=== PATIENT | male | born 1975 | race Caucasian/White ===

== ENCOUNTER 2024-02-25 06:33 | Emergency (ER) | payer OTHER, SELFPAY ==
[2024-02-25 06:41] VITALS: BP 162/98; PULSE 100; TEMP 36.6; O2SAT 97; BMI 32.3
[2024-02-25 07:20] LABS: Influenza Virus A Antigen Negative; Influenza Virus B Antigen Negative; Internal Control Within Normal Limits; SARS-CoV-2 Ag POSITIVE (NEGATIVE)
--- NOTE | 2024-02-25 07:27 | ED.URI1 ---
HPI - URI/Sore Throat General Chief Complaint: Upper Respiratory Infection Stated Complaint: NASAL PAIN/CONGESTION Time Seen by Provider: 02/25/24 07:17 Source: patient Limitations: no limitations History of Present Illness HPI Narrative: 49-year-old male presents to the emergency department for cough and congestion. He has had this for 3 to 4 days. No vomiting or diarrhea. He has had some pressure in his head. Symptoms are continuous. Related Data Home Medications ?Medication ?Instructions ?Recorded ?Confirmed No Known Home Medications 02/25/24 02/25/24 Allergies Allergy/AdvReac Type Severity Reaction Status Date / Time No Known Drug Allergies Allergy Verified 02/25/24 06:47 Review of Systems ROS Narrative A ten point review of systems is negative except as noted above. PFSH PFSH Social History Little interest or pleasure in doing things: not at all Feeling down, depressed, or hopeless: not at all Exam Narrative Exam Narrative: Nurses note and vital signs reviewed and patient is not hypoxic. General: The patient appears well and in no apparent distress. Patient is resting comfortably on cart. Skin: Warm, dry, no pallor noted. There is no rash noted. Head: Normocephalic, atraumatic Eye: Normal conjunctiva, no drainage Ears, Nose, Mouth, and Throat: oral mucosa is moist. Nares patent. Cardiovascular: Regular Rate and Rhythm Respiratory: Patient is in no distress, no accessory muscle use, lungs are clear to auscultation, no wheezing, rales or rhonchi Back: non-tender GI: Soft and nontender Musculoskeletal: No joint swelling Neurological: A&O, normal speech Psychiatric: Cooperative Constitutional Vital Signs, click to edit/add: Last Vital Signs Temp 97.8 F 02/25/24 06:41 Pulse 100 H 02/25/24 06:41 Resp 18 02/25/24 06:41 BP 162/98 H 02/25/24 06:41 Pulse Ox 97 02/25/24 06:41 O2 Del Method Room Air 02/25/24 06:41 Course Vital Signs Vital signs: Vital Signs Temperature 97.8 F 02/25/24 06:41 Pulse Rate 100 H 02/25/24 06:41 Respiratory Rate 18 02/25/24 06:41 Blood Pressure 162/98 H 02/25/24 06:41 Pulse Oximetry 97 02/25/24 06:41 Oxygen Delivery Method Room Air 02/25/24 06:41 Temperature 97.8 F 02/25/24 06:41 Pulse Rate 100 H 02/25/24 06:41 Respiratory Rate 18 02/25/24 06:41 Blood Pressure 162/98 H 02/25/24 06:41 Pulse Oximetry 97 02/25/24 06:41 Oxygen Delivery Method Room Air 02/25/24 06:41 MDM - URI/Sore Throat MDM Narrative Medical decision making narrative: The patient tested positive for COVID and he was informed. Influenza testing is negative. Treatment diagnosis and follow-up were discussed with the patient. Differential Diagnosis Differential diagnosis: Likely upper respiratory infection, viral infection, influenza and other (COVID) Lab Data Attestation: I reviewed the patient's lab results. Labs: Lab Results 02/25/24 Range/Units 06:50 Influenza Type A Ag Negative Influenza Type B Ag Negative SARS-CoV-2 Ag (CV2AG) Positive A (NEGATIVE) Discharge Plan Discharge Chief Complaint: Upper Respiratory Infection Clinical Impression: COVID-19 Patient Disposition: Home, Self-Care Time of Disposition Decision: 07:27 Condition: Good Mode of Transportation: Private Vehicle Prescriptions / Home Meds: No Action No Known Home Medications Print Language: Korean Instructions: COVID-19 (Coronavirus Disease 2019) (ED), COVID-19: Slow the Coronavirus Spread (ED), Face Coverings (Masks) and COVID-19 (ED) Referrals: Physician,Non-Staff, MD [Primary Care Provider] - 1 week
== END 2024-02-25 08:00 | disposition home or self-care (01) ==
PROVIDERS: Student in an Organized Health Care Education/Training Program; Emergency Provider Emergency Medicine
DX: U07.1 COVID-19 (principal)
CPT/HCPCS: 87804; 87811; 99283

== ENCOUNTER 2024-03-26 07:19 | Outpatient (OUT) | payer OTHER, SELFPAY ==
--- OUTSIDE RECORDS SUMMARY | 2024-03-26 07:22 | XMS_ITS | CCD ---
Author Organization [facility] Care Team Providers Care Tube Fitter Name Role Phone ZEN ANDERSON Primary Care Unavailable AIRAM EUCEDA Admitting Unavailable AIRAM EUCEDA Attending Unavailable AIRAM EUCEDA Consulting Unavailable ZEN ANDERSON Primary Care Unavailable KAYE WASHINGTON Admitting Unavailable HAYKAYE Attending Unavailable KAYE WASHINGTON Consulting Unavailable ZEN ANDERSON Primary Care Unavailable WILLOWS, OF TONY Admitting Unavailable WILLOWS, OF ENSIGN Attending Unavailable RODOLFO SANTANA Consulting Unavailable EMILY MENDES Consulting Unavailable David Sierra Attending Unavailable David Sierra Attending Unavailable David Sierra Attending Unavailable David Sierra Attending Unavailable Bárbara Vieira Attending Unavailable David Sierra Attending Unavailable David Sierra Attending Unavailable David Sierra Attending Unavailable Allergies Allergy Classification Reported Allergen(s) Allergy Type Date of Onset Reaction(s) Facility (1 source) No Known Medication Allergies; Translations: [No Known Medication Allergies] Propensity to adverse reactions (disorder) [facility] Repository Problems Active Problems Problem Classification Problem Date Documented Date Episodic/Chronic Disorders of teeth and jaw (3 sources) Jaw pain; Translations: [JAW PAIN] Onset: 08-26-2018 Episodic Disorders of teeth and jaw (1 source) Arthralgia of right temporomandibular joint; Translations: [ARTHRALGIA OF RIGHT TMD JOINT] Onset: 08-31-2018 Essential hypertension (1 source) Essential (primary) hypertension; Translations: [ESSENTIAL PRIMARY HYPERTENSION] Onset: 06-03-2018 Chronic External cause codes: Natural/environment (1 source) Other and unspecified overexertion or strenuous movements or postures, initial encounter; Translations: [OTH AND UNS OVREXRT/STRN MVMT/POS INT] Onset: 12-28-2017 Headache; including migraine (1 source) Tension-type headache, unspecified, not intractable; Translations: [TENSION-TYP HEADACHE UNS NOT INTRCT] Onset: 06-03-2018 Chronic Substance-related disorders (1 source) Nicotine dependence, cigarettes, uncomplicated; Translations: [NICOTINE DEPEND CIGARETTES UNCOMP] Onset: 08-31-2018 Chronic Past or Other Problems Problem Classification Problem Date Documented Da te Episodic/Chronic Headache; including migraine (3 sources) Headache; Translations: [HEADACHE] Onset: 06-01-2018 Episodic Malaise and fatigue (1 source) Weakness; Translations: [WEAKNESS] Onset: 12-28-2017 Episodic Other nervous system disorders (1 source) Anesthesia of skin; Translations: [ANESTHESIA OF SKIN] Onset: 12-28-2017 Episodic Spondylosis; intervertebral disc disorders; other back problems (3 sources) Dorsalgia, unspecified; Translations: [DORSALGIA UNSPECIFIED] Onset: 12-24-2017 Episodic Sprains and strains (1 source) Sprain of other specified parts of left shoulder girdle, initial encounter; Translations: [SPRAIN OTH PART LT SHLDR GIRDL INIT] Onset: 12-28-2017 Episodic Results Test Name Value Interpretation Reference Range [facility] Family Medicine Office/Clini c Noteon 01-04-2024 Family Medicine Office/Clinic Note Family Medicine Office/Clinic Note Chief Complaint Nerve Pain HPI Staff Elizabeth is a 48 year old male presenting with burning in nerves in legs and feet Onset: Has been going on for a while. Last fall. Has tried putting oil on them. History of Present Illness Patient presents with concerns about bilateral leg pain. Patient states is a 5 out of 10 at this time. Patient states that worsens as he walks throughout the day. It is not 1 of those pains where he can stop take a break and the pain goes away. Patient states that starts in his feet and goes all the way up to his calves. Patient states is not a crampy pain. Patient is try to stretch it out without any help. Patient tried medication topically however nothing is work. Patient does consume 5-6 alcoholic drinks on the weekends and 1-2 every day. Patient also uses marijuana. Review of Systems PHQ Score Initial Depression Screen Score: 0 SCORE Physical Exam Vitals & Measurements T: 36.4 ???C(Tympanic) HR: 86(Peripheral) RR: 18 BP: 150/88 SpO2: 96% HT: 69 in HT: 174 cm WT: 102.7 kg WT: 226.414 lb BMI: 33.92 General: alert, no acute distress ENMT: oral mucosa moist, Cardiovascular: regular rate and rhythm, normal peripheral perfusion Respiratory: Lungs CTA, respirations non labored Extremities: no deformity, no trauma, lower extremities are within normal limits. No signs of skin abnormalities. Full range of motion. Neurological: oriented x 4, LOC appropriate for age, CN II-XII intact, motor strength equal & normal bilaterally, speech normal Abdomen: Soft, Nontender, Non-distended, + BS Assessment/Plan 1. Primary hypertension (I10: Essential (primary) hypertension) Blood pressure is controlled however patient is no longer taking his blood pressure medication. Will continue to monitor. Ordered: EMG Bilateral Lower Extremity (BLE) 2. Leg pain (M79.606: Pain in leg, unspecified) With the burning and tingling of his feet we will do EMGs. After that we will test for other possible options. Encourage alcohol sensation given the amount he consumes. Ordered: EMG Bilateral Lower Extremity (BLE) 4. BMI 33.0-33.9,adult (Z68.33: Body mass index [BMI] 33.0-33.9, adult) BMI education added Ordered: EMG Bilateral Lower Extremity (BLE) 5. Smoker (F17.200: Nicotine dependence, unspecified, uncomplicated) Please stop smoking Ordered: EMG Bilateral Lower Extremity (BLE) 6. Obesity (BMI 30-39.9) (E66.9: Obesity, unspecified) Diet and exercise advised Ordered: EMG Bilateral Lower Extremity (BLE) Follow-up No qualifying data available Patient Education BMI for Adults Problem List/Past Medical History Ongoing Allergic rhinitis Leg pain Obesity (BMI 30-39.9) Primary hypertension Historical No qualifying data Procedure/Surgical History History of repair of inguinal hernia. Medications hydrochlorothiazide-losa rtan 25 mg-100 mg Tab, See Instructions, Not taking traZODONE 50 mg Tab, See Instructions, Not taking Allergies No Known Allergies Social History Alcohol Current. Beer. 1-2 times per week., 01/04/2024 Tobacco 4 or less cigarettes(less than 1/4 pack)/day in last 30 days Tobacco Use:. Never Smokeless Tobacco Use:. Cigarettes, Household tobacco concerns: No. Yes, 01/04/2024 Family History Acute myocardial infarction: Mother. Immunizations Vaccine Date Status SARS-CoV-2 (COVID-19) mRNA BNT-162b2 vax 06/14/2020 Recorded SARS-CoV-2 (COVID-19) mRNA BNT-162b2 vax 05/24/2020 Recorded Normal [facility] Comment on above: Result Comment: Elec tronically Signed By: Rigo WILSON, David Blood.br\Date and Time Signed: 01/04/24 17:04 EST Family Medicine Office/Clini c Noteon 12-07-2023 Family Medicine Office/Clinic Note Family Medicine Office/Clinic Note HPI Staff Elizabeth is a 48 year old male presenting for 2 week follow up htn DEANA eliminate nyquil ( affecting losartan hctz regimen) add trazodone for sleep Patient is here for follow up on hypertension. How often are you checking your blood pressure? Doesnt check BP at home What are your average readings? N/A, Not checking at home Yearly BMP: ?? questions/concerns: took the trazodone consistently for a couple days then he just couldn't seem to wake up. He did stop the nyquil. Still has the trazodone but not taking every night History of Present Illness - See staff HPI. Physical Exam Vitals & Measurements T: 36.2 ?C(Oral) HR: 76(Peripheral) RR: 18 BP: 132/84 SpO2: 98% HT: 69 in HT: 174.6 cm WT: 105.5 kg WT: 232.1 lb BMI: 34.61 Assessment/Plan 1. Primary hypertension (I10: Essential (primary) hypertension) Controlled now that he is not on nightquil. Continue as before 2. BMI 34.0-34.9,adult (Z68.34: Body mass index [BMI] 34.0-34.9, adult) BMI education added 3. Exogenous obesity (E66.09: Other obesity due to excess calories) Diet and exercise advised 4. Smoker (F17.200: Nicotine dependence, unspecified, uncomplicated) Please stop smoking. If you need help let us know. 5. Insomnia (G47.00: Insomnia, unspecified) Pt is going to try off meds. Will monitor. Follow-up No qualifying data available Problem List/Past Medical History Ongoing Acute URI Allergic rhinitis Primary hypertension Historical No qualifying data Procedure/Surgical History History of repair of inguinal hernia. Medications hydrochlorothiazide-losa rtan 25 mg-100 mg Tab, See Instructions Allergies No Known Allergies Social History Tobacco 4 or less cigarettes(less than 1/4 pack)/day in last 30 days Tobacco Use:. Never Smokeless Tobacco Use:. Cigarettes, Household tobacco concerns: No., 12/07/2023 Family History Acute myocardial infarction: Mother. Immunizations Vaccine Date Status SARS-CoV-2 (COVID-19) mRNA BNT-162b2 vax 06/14/2020 Recorded SARS-CoV-2 (COVID-19) mRNA BNT-162b2 vax 05/24/2020 Recorded Normal [facility] Comment on above: Result Comment: Elec tronically Signed By: David Sierra MD\.br\Date and Time Signed: 12/07/23 16:47 EDT Ambulatory Visit Summaryon 0 11-23-2023 Ambulatory Visit Summary Ambulatory Visit Summary ELIZABETH CALLAHAN :1975 Visit Date:11/23/2023 Ambulatory Visit Instructions Your Diagnosis BMI 33.0-33.9,adult Class 1 obesity due to excess calories in adult Smoker Alcohol abuse, uncomplicated Essential (primary) hypertension Your Care Team Attending Physician - David Sierra MD Primary Care Physician - David Sierra MD This Is Your Medications List Contact prescribing physician if questions or concerns hydrochlorothiazide-losa rtan (hydrochlorothiazide-los karie 25 mg-100 mg Tab) Procedures Performed History of repair of inguinal hernia. Discharge Vitals Temperature (Oral) 36.7 ?C Heart Rate (Peripheral) 74 Respiratory Rate 16 Blood Pressure 146/92 Height 174.6 cm Height 69 in Weight 102.6 kg Weight 225.72 lb BMI 33.66 What to do next Scheduled Follow-Up Appointments Thursday 4:30 PM EDT With: David Sierra MD Where: [address] [address]- Thursday 4:00 PM EDT With: David Sierra MD Where: [facility] [id number]- Medications What How Much When Instructions Unchanged hydrochlorothiazide-losa rtan (hydrochlorothiazide-los akrie 25 mg-100 mg Tab) See instructions TAKE 1 TABLET BY MOUTH EVERY DAY Contact prescribing physician if questions or concerns Allergies No Known Allergies Problems Ongoing - Any problem that you are currently receiving treatment for. Acute URI Allergic rhinitis Primary hypertension Patient Survey You may receive a survey via text or e-mail asking about your office visit. Please share your experience with us by completing your survey. We appreciate your feedback and thank you for choosing us for your care. Normal [facility] Ambulatory Visit Summaryon 0 11-02-2023 Ambulatory Visit Summary Ambulatory Visit Summary ELIZABETH CALLAHAN :1975 Visit Date:11/02/2023 Ambulatory Visit Instructions Your Diagnosis Acute URI Primary hypertension Allergic rhinitis BMI 34.0-34.9,adult Class 1 obesity due to excess calories in adult Smoker Your Care Team Attending Physician - David Sierra MD Primary Care Physician - David Sierra MD. This Is Your Medications List Contact prescribing physician if questions or concerns hydrochlorothiazide-losa rtan (hydrochlorothiazide-los karie 25 mg-100 mg Tab) Procedures Performed History of repair of inguinal hernia. Discharge Vitals Temperature (Oral) 36.8 ?C Heart Rate (Peripheral) 102 Respiratory Rate 18 Blood Pressure 150/84 Height 174.6 cm Height 69 in Weight 104.5 kg Weight 229.9 lb BMI 34.28 What to do next Scheduled Follow-Up Appointments Thursday 4:00 PM EDT With: David Sierra MD Where: [address] [address]- Medications What How Much When Instructions Unchanged hydrochlorothiazide-losa rtan (hydrochlorothiazide-los karie 25 mg-100 mg Tab) See instructions TAKE 1 TABLET BY MOUTH EVERY DAY Contact prescribing physician if questions or concerns Allergies No Known Allergies Problems Ongoing - Any problem that you are currently receiving treatment for. Acute URI Allergic rhinitis Primary hypertension Patient Survey You may receive a survey via text or e-mail asking about your office visit. Please share your experience with us by completing your survey. We appreciate your feedback and thank you for choosing us for your care. [facility] Medicine Office/Clini c Noteon 11-02-2023 Family Medicine Office/Clinic Note Family Medicine Office/Clinic Note HPI Staff Elizabeth is a 48 year old male presenting for sick visit Acute: cough, congestion _Respiratory C/O: Duration: month or more Body aches: no Chest congestion: no Chills: yes Cough: no gone last day or 2 had one last week Ear complaints: no Eye itching/watering: no Fever: no Headache: yes sinus Nasal congestion: yes Nasal discharge: yes Poor appetite: no Reduced activity: no Sinus pain/pressure: yes Sneezing: yes Sputum production: no Wheezing: no Ill contacts: yesbrother bad cold Remedies tried: vitamin c drops and nyquil _ _ History of Present Illness - See staff HPI. Review of Systems PHQ Score Initial Depression Screen Score: 0 SCORE Physical Exam Vitals & Measurements T: 36.8 ?C(Oral) HR: 102(Peripheral) RR: 18 BP: 150/84 SpO2: 98% HT: 69 in HT: 174.6 cm WT: 104.5 kg WT: 229.9 lb BMI: 34.28 General: alert, no acute distress ENMT: oral mucosa moist, TMS are WNL Cardiovascular: regular rate and rhythm, normal peripheral perfusion Respiratory: Lungs CTA, respirations non labored Extremities: no deformity, no trauma Neurological: oriented x 4, LOC appropriate for age, CN II-XII intact, motor strength equal & normal bilaterally, speech normal Abdomen: Soft, Nontender, Non-distended, + BS Assessment/Plan 1. Acute URI (J06.9: Acute upper respiratory infection, unspecified) - Covid is negative. - Unsure if allergies. Ordered: azithromycin, 500 mg = 1 tab(s), Oral, Daily, # 3 tab(s), Refills(s) 0, Pharmacy: [id number], 174.6, cm, 11/02/23 9:56:00 EDT, Height/Length Dosing, 104.5, kg, 11/02/23 9:56:00 EDT, Weight Dosing methylPREDNISolone, = 1 packet(s), Oral, As Directed, as directed on package labeling, X 6 day(s), # 21 tab(s), Refills(s) 0, [id number] 174.6, cm, 11/02/23 9:56:00 EDT, Height/Length Dosing, 104.5, kg, 11/02/23 9:56:00 EDT, Weight Dosing Rapid COVID POC 09033 2. Primary hypertension (I10: Essential (primary) hypertension) - At goal. Will refill meds Ordered: azithromycin, 500 mg = 1 tab(s), Oral, Daily, # 3 tab(s), Refills(s) 0, [id number], 174.6, cm, 11/02/23 9:56:00 EDT, Height/Length Dosing, 104.5, kg, 11/02/23 9:56:00 EDT, Weight Dosing methylPREDNISolone, = 1 packet(s), Oral, As Directed, as directed on package labeling, X 6 day(s), # 21 tab(s), Refills(s) 0, [id number], 174.6, cm, 11/02/23 9:56:00 EDT, Height/Length Dosing, 104.5, kg, 11/02/23 9:56:00 EDT, Weight Dosing Rapid COVID POC 65427 3. Allergic rhinitis (J30.9: Allergic rhinitis, unspecified) - Possibly the cause of the sinus pressure. - Recommend Zyrtec. Ordered: azithromycin, 500 mg = 1 tab(s), Oral, Daily, # 3 tab(s), Refills(s) 0, [id number], 174.6, cm, 11/02/23 9:56:00 EDT, Height/Length Dosing, 104.5, kg, 11/02/23 9:56:00 EDT, Weight Dosing methylPREDNISolone, = 1 packet(s), Oral, As Directed, as directed on package labeling, X 6 day(s), # 21 tab(s), Refills(s) 0, [id number], 174.6, cm, 11/02/23 9:56:00 EDT, Height/Length Dosing, 104.5, kg, 11/02/23 9:56:00 EDT, Weight Dosing Rapid COVID POC 90844 4. BMI 34.0-34.9,adult (Z68.34: Body mass index [BMI] 34.0-34.9, adult) - BMI education added Ordered: azithromycin, 500 mg = 1 tab(s), Oral, Daily, # 3 tab(s), Refills(s) 0, [id number], 174.6, cm, 11/02/23 9:56:00 EDT, Height/Length Dosing, 104.5, kg, 11/02/23 9:56:00 EDT, Weight Dosing methylPREDNISolone, = 1 packet(s), Oral, As Directed, as directed on package labeling, X 6 day(s), # 21 tab(s), Refills(s) 0, [id number], 174.6, cm, 11/02/23 9:56:00 EDT, Height/Length Dosing, 104.5, kg, 11/02/23 9:56:00 EDT, Weight Dosing Rapid COVID POC 86189 5. Class 1 obesity due to excess calories in adult (E66.09: Other obesity due to excess calories) - Diet and exercise advised Ordered: azithromycin, 500 mg = 1 tab(s), Oral, Daily, # 3 tab(s), Refills(s) 0, [id number], 174.6, cm, 11/02/23 9:56:00 EDT, Height/Length Dosing, 104.5, kg, 11/02/23 9:56:00 EDT, Weight Dosing methylPREDNISolone, = 1 packet(s), Oral, As Directed, as directed on package labeling, X 6 day(s), # 21 tab(s), Refills(s) 0, [id number], 174.6, cm, 11/02/23 9:56:00 EDT, Height/Length Dosing, 104.5, kg, 11/02/23 9:56:00 EDT, Weight Dosing Rapid COVID POC 52796 6. Smoker (F17.200: Nicotine dependence, unspecified, uncomplicated) Ordered: azithromycin, 500 mg = 1 tab(s), Oral, Daily, # 3 tab(s), Refills(s) 0, [id number], 174.6, cm, 11/02/23 9:56:00 EDT, Height/Length Dosing, 104.5, kg, 11/02/23 9:56:00 EDT, Weight Dosing methylPREDNISolone, = 1 packet(s), Oral, As Directed, as directed on package labeling, X 6 day(s), # 21 tab(s), Refills(s) 0, Pharmacy: [id number], 174.6, cm, 11/02/23 9:56:00 EDT, Height/Length Dosing, 104.5, kg, 11/02/23 9:56:00 EDT, Weight Dosing Follow-up No qu (more content not included)... [facility] Comment on above: Result Comment: Elec tronically Signed By: David Sierra MD\.br\Date and Time Signed: 11/02/23 10:17 EDT Provider Letteron 11-02-2023 Provider Letter Provider Letter November 02, 2023 ELIZABETH CALLAHAN [address] [place] [address] : 1975 To Whom It May Concern, Please excuse above patient from work. Date of Illness: From: _11-02-23 To: _11-02-23 May Return to Work On:11-03-23 Restrictions: _ Comments: _ Sincerely, Family Medicine [address] [address] [facility] Ambulatory Visit Summaryon 0 05-14-2023 Ambulatory Visit Summary ELIZABETH CALLAHAN :1975 Visit Date:05/14/2023 Ambulatory Visit Instructions Your Diagnosis BMI 34.0-34.9,adult Smoker Your Care Team Attending Physician - Bárbara Cameron Primary Care Physician - David Sierra MD This Is Your Medications List hydrochlorothiazide-losa rtan (hydrochlorothiazide-los karie 25 mg-100 mg Tab) Procedures Performed History of repair of inguinal hernia. Discharge Vitals Temperature (Tympanic) 36.6 ?C Heart Rate (Peripheral) 70 Respiratory Rate 18 Blood Pressure 138/88 Height 174.6 cm Height 69 in Weight 105.6 kg Weight 232.32 lb BMI 34.64 Medications What How Much When Instructions Unchanged hydrochlorothiazide-losa rtan (hydrochlorothiazide-los karie 25 mg-100 mg Tab) See instructions TAKE 1 TABLET BY MOUTH EVERY DAY Allergies No Known Allergies Problems Ongoing - Any problem that you are currently receiving treatment for. Allergic rhinitis Chest pain on breathing Primary hypertension Torticollis Patient Survey You may receive a survey via text or e-mail asking about your office visit. Please share your experience with us by completing your survey. We appreciate your feedback and thank you for choosing us for your care. Normal [facility] Family Medicine Office/Clini c Noteon 05-14-2023 Family Medicine Office/Clinic Note HPI Staff Elizabeth is a 48 year old male presenting for acute sick visit Respiratory C/O: Onset: 2 days ago Body aches: no Chest congestion: yes chest feels heavy Chills: no Cough: no Sputum production: no Sore throat: no Ear complaints: no Eye itching/watering: no Fever: no Headache: no Nasal congestion: yes Nasal discharge: yes Poor appetite: no Reduced activity: no Sinus pain/pressure: yes Sneezing: yes Wheezing: no Ill contacts: no Remedies tried: Mucinex, NyQuil, Benadryl Questions/Concerns: History of Present Illness pt presents today with sinus and chest congestion Review of Systems PHQ Score Initial Depression Screen Score: 0 SCORE Physical Exam Vitals & Measurements T: 36.6 ?C(Tympanic) HR: 70(Peripheral) RR: 18 BP: 138/88 SpO2: 99% HT: 69 in HT: 174.6 cm WT: 105.6 kg WT: 232.32 lb BMI: 34.64 General: alert, no acute distress ENMT: oral mucosa moist, no pharyngeal erythema or exudate, right TM and canal red Cardiovascular: regular rate and rhythm, normal peripheral perfusion Respiratory: Lungs CTA, respirations non labored Extremities: no deformity, no trauma Neurological: oriented x 4, LOC appropriate for age, CN II-XII intact, motor strength equal & normal bilaterally, speech normal Assessment/Plan 1. Sinusitis (J32.9: Chronic sinusitis, unspecified) sinus tenderness and pressure. will order medrol and augmentin Ordered: amoxicillin-clavulanate, = 1 tab(s), Oral, q12hr, X 7 day(s), # 14 tab(s), Refills(s) 0, [id number] 174.6, cm, 05/14/23 11:16:00 EDT, Height/Length Dosing, 105.6, kg, 05/14/23 11:16:00 EDT, Weight Dosing methylPREDNISolone, = 1 packet(s), Oral, As Directed, as directed on package labeling, X 6 day(s), # 21 tab(s), Refills(s) 0, Pharmacy: [id number], 174.6, cm, 05/14/23 11:16:00 EDT, Height/Length Dosing, 105.6, kg, 05/14/23 11:16:00 EDT, Weight Dosing 2. Left otitis media (H66.92: Otitis media, unspecified, left ear) left TM and canal red Ordered: amoxicillin-clavulanate, = 1 tab(s), Oral, q12hr, X 7 day(s), # 14 tab(s), Refills(s) 0, [id number], 174.6, cm, 05/14/23 11:16:00 EDT, Height/Length Dosing, 105.6, kg, 05/14/23 11:16:00 EDT, Weight Dosing methylPREDNISolone, = 1 packet(s), Oral, As Directed, as directed on package labeling, X 6 day(s), # 21 tab(s), Refills(s) 0, [id number], 174.6, cm, 05/14/23 11:16:00 EDT, Height/Length Dosing, 105.6, kg, 05/14/23 11:16:00 EDT, Weight Dosing 3. BMI 34.0-34.9,adult (Z68.34: Body mass index [BMI] 34.0-34.9, adult) BMI education complete Ordered: amoxicillin-clavulanate, = 1 tab(s), Oral, q12hr, X 7 day(s), # 14 tab(s), Refills(s) 0, [id number], 174.6, cm, 05/14/23 11:16:00 EDT, Height/Length Dosing, 105.6, kg, 05/14/23 11:16:00 EDT, Weight Dosing methylPREDNISolone, = 1 packet(s), Oral, As Directed, as directed on package labeling, X 6 day(s), # 21 tab(s), Refills(s) 0, [id number], 174.6, cm, 05/14/23 11:16:00 EDT, Height/Length Dosing, 105.6, kg, 05/14/23 11:16:00 EDT, Weight Dosing 4. Smoker (F17.200: Nicotine dependence, unspecified, uncomplicated) consider not smoking Ordered: amoxicillin-clavulanate, = 1 tab(s), Oral, q12hr, X 7 day(s), # 14 tab(s), Refills(s) 0, [id number], 174.6, cm, 05/14/23 11:16:00 EDT, Height/Length Dosing, 105.6, kg, 05/14/23 11:16:00 EDT, Weight Dosing methylPREDNISolone, = 1 packet(s), Oral, As Directed, as directed on package labeling, X 6 day(s), # 21 tab(s), Refills(s) 0, Pharmacy: [id number], 174.6, cm, 05/14/23 11:16:00 EDT, Height/Length Dosing, 105.6, kg, 05/14/23 11:16:00 EDT, Weight Dosing Follow-up No qualifying data available Problem List/Past Medical History Ongoing Allergic rhinitis Chest pain on breathing Left otitis media Primary hypertension Sinusitis Torticollis Historical No qualifying data Procedure/Surgical History History of repair of inguinal hernia. Medications Augmentin 875 mg oral tablet, 1 tab(s), Oral, q12hr hydrochlorothiazide-losa rtan 25 mg-100 mg Tab, See Instructions Medrol 4 mg Tab, 1 packet(s), Oral, As Directed Allergies No Known Allergies Social History Tobacco 4 or less cigarettes(less than 1/4 pack)/day in last 30 days, last cigarette on thursday Tobacco Use:. Never Smokeless Tobacco Use:. Cigarettes, Household tobacco concerns: No., 05/14/2023 Family History Acute myocardial infarction: Mother. Immunizations Vaccine Date Status SARS-CoV-2 (COVID-19) mRNA BNT-162b2 vax 06/14/2020 Recorded SARS-CoV-2 (COVID-19) mRNA BNT-162b2 vax 05/24/2020 Recorded Normal [facility] Comment on above: Result Comment: Elec tronically Signed By: Bárbara Cameron\.br\Date and Time Signed: 05/14/23 12:36 EDT XR MANDIBLE MIN 4Von 019 XR MANDIBLE MIN 4V Patient: ELIZABETH CALLAHAN Exam Date: 08/26/2018 : 1975 Gender:M Ordering : DR. EMILY MENDES . Admission #: [id number] [facility] : [facility] [place] Order #: [id number] CLICK HERE TO VIEW EXAM RADIOLOGY REPORT PROCEDURE: RADIOGRAPH MANDIBLE MIN 4 VIEWS COMPARISON: None. INDICATIONS: Acute right ear pain without injury FINDINGS: BONES: Normal appearance of the mandible and temporomandibular joints. No appreciable fluid or opacification of the mastoid air cells. SOFT TISSUES: No visible soft tissue swelling or radiopaque foreign body. OTHER: Negative. CONCLUSION: 1. No acute or suspicious findings. Dictated by: Rodolfo Santana M.D. on 08/26/2018 at 11:34 Approved by: Rodolfo Santana M.D. on 08/26/2018 at 11:38 Normal [facility] Encounters Encounter Date Encounter Type Care Provider Facility Start: 02-01-2024 End: 02-01-2024 [facility] Start: 01-04-2024 End: 01-04-2024 ambulatory David Sierra Facility:[facility] Wendy combs Start: 12-07-2023 End: 12-07-2023 ambulatory David Sierra Facility:[facility] [place] la[place] Start: 11-23-2023 End: 11-23-2023 ambulatory David Sierra Facility:[facility] [place] Start: 11-02-2023 End: 11-02-2023 ambulatory [facility] Start: 05-14-2023 End: 05-14-2023 ambulatory Bárbara Vieira Facility:[facility] Wendy combs Start: 02-09-2023 ambulatory David Sierra Facility :[facility] Tony Start: 08-26-2018 End: 08-26-2018 Patient encounter procedure ZEN Alexa ANDERSON Facility:[facility] Start: 06-01-2018 End: 06-01-2018 Patient encounter procedure ZEN Alexa ANDERSON Facility:[facility] Start: 12-24-2017 End: 12-24-2017 Patient encounter procedure ZEN ANDERSON Facility:[facility] Plan of Treatment Date Care Activity Detail Author Start: 05-02-2024 ambulatory Ambulatory Facility:[facility] Tony Payers Date Payer Category Payer Unknown [id number] 1975 Unknown [id number] 2.16.84 [id number] 1975 Unknown [id number] 2.16.84 [id number] 1975 Unknown [id number] 2.16.84 [id number] 1975 Unknown [id number] 2.16.8 [id number] 1975 Unknown [id number] 2.16.8 [id number] 1975 Unknown [id number] 2.16.8 [id number] 1975 Unknown [id number] 2.16.8 [id number] 1975 Unknown [id number] 2.16.8 [id number] 1975 Unknown [id number] 2.16.8 [id number] 1975 Unknown [id number] 2.16.8 [id number] 1975 Unknown [id number] 2.16.8 [id number] 1958 Unknown [id number] Clinical Note 01-04-2024 Note Date & Type Note Facility 01-04-2024 Note Patient Education Nutrition BMI for Adults Body mass index (BMI) is a number found using a person's weight and height. BMI can help tell how much of a person's weight is made up of fat. BMI does not measure body fat directly. It is used instead of tests that directly measure body fat, which can be difficult and expensive. What are BMI measurements used for? BMI is useful to: ??? Find out if your weight puts you at higher risk for medical problems. ??? Help recommend changes, such as in diet and exercise. This can help you reach a healthy weight. BMI screening can be done again to see if these changes are working. How is BMI calculated? Your height and weight are measured. The BMI is found from those numbers. This can be done with U.S. or metric measurements. Note that charts and online BMI calculators are available to help you find your BMI quickly and easily without doing these calculations. To calculate your BMI in U.S. measurements: 1. Measure your weight in pounds (lb). 2. Multiply the number of pounds by 703. ??? So, for an adult who weighs 150 lb, multiply that number by 703: 150 x 703, which equals 105,450. 3. Measure your height in inches. Then multiply that number by itself to get a measurement called inches squared. ??? So, for an adult who is 70 inches tall, the inches squared measurement is 70 inches x 70 inches, which equals 4,900 inches squared. 4. Divide the total from step 2 (number of lb x 703) by the total from step 3 (inches squared): 105,450 ? 4,900 = 21.5. This is your BMI. To calculate your BMI in metric measurements: 1. Measure your weight in kilograms (kg). ??? For this example, the weight is 70 kg. 2. Measure your height in meters (m). Then multiply that number by itself to get a measurement called meters squared. ??? So, for an adult who is 1.75 m tall, the meters squared measurement is 1.75 m x 1.75 m, which equals 3.1 meters squared. 3. Divide the number of kilograms (your weight) by the meters squared number. In this example: 70 ? 3.1 = 22.6. This is your BMI. What do the results mean? BMI charts are used to see if you are underweight, normal weight, overweight, or obese. The following guidelines will be used: ??? Underweight: BMI less than 18.5. ??? Normal weight: BMI between 18.5 and 24.9. ??? Overweight: BMI between 25 and 29.9. ??? Obese: BMI of 30 or above. BMI is a tool and cannot diagnose a condition. Talk with your health care provider about what your BMI means for you. Keep these notes in mind: ??? Weight includes fat and muscle. Someone with a muscular build, such as an athlete, may have a BMI that is higher than 24.9. In cases like these, BMI is not a correct measure of body fat. ??? If you have a BMI of 25 or higher, your provider may need to do more testing to find out if excess body fat is the cause. ??? BMI is measured the same way for males and females. Females usually have more body fat than males of the same height and weight. Where to find more information For more information about BMI, including tools to quickly find your BMI, go to: ??? Centers for Disease Control and Prevention: cdc.gov ??? [place] Heart [employer]: heart.org ??? National Heart, Lung, and Blood [place]: nhlbi.nih.gov This information is not intended to replace advice given to you by your health care provider. Make sure you discuss any questions you have with your health care provider. Document Revised: 10/30/2022 Document Reviewed: 10/23/2022 [employer] Patient Education ? 2023 [employer] [facility] Clinical Note 11-23-2023 Note Date & Type Note Facility 11-23-2023 Note Family Medicine Offi ce/Clinic Note Chief Complaint Hypertension evaluation and smoking cessation counseling. HPI Staff Elizabeth is a 48 year old male presenting for medication eval for htn Would like different bp meds Patient is here for follow up on hypertension. How often are you checking your blood pressure? Doesnt check BP at home What are your average readings? N/A, Not checking at home Yearly BMP: _ questions/concerns: feels BP is high and current meds not controlling it, he's not checked it but says he can tell by pressure up under his eyes and tingling sensation in face and tingling History of Present Illness The patient is a 48-year-old male presenting with hypertension and nicotine dependence. He reports experiencing symptoms associated with elevated blood pressure, such as tingling in the face and a sensation of pressure, particularly when he consumes alcohol or certain medications like NyQuil. The patient acknowledges long-term usage of NyQuil as a sleep aid despite its content, including Sudafed, which may elevate blood pressure. He experiences a fluctuating smoking pattern, currently consuming approximately half a pack per week, striving toward cessation with intermittent success. The patient also mentions drinking alcohol, especially during weekends, with occasional overconsumption leading to concerns about alcohol abuse potentially impacting his hypertension. The patient is on maximum doses of losartan and hydrochlorothiazide for blood pressure management but recognizes the need to review medication due to potential drug interactions from NyQuil. He denies daily alcohol consumption but describes episodes of significant intake on specific days, suspecting it exacerbates his hypertension. The patient denies being symptomatic for alcohol withdrawal, confirming an ability to abstain without experiencing shakes. A new plan involves trialing trazodone for insomnia while ceasing NyQuil use to manage factors contributing to elevated blood pressure. Review of Systems PHQ Score Initial Depression Screen Score: 0 SCORE Physical Exam Vitals & Measurements T: 36.7 ?C(Oral) HR: 74(Peripheral) RR: 16 BP: 146/92 SpO2: 99% HT: 69 in HT: 174.6 cm WT: 102.6 kg WT: 225.72 lb BMI: 33.66 General: alert, no acute distress ENMT: oral mucosa moist Cardiovascular: Regular rate and rhythm, normal peripheral perfusion Respiratory: Lungs clear to auscultation, respirations non labored Extremities: no deformity, no trauma Neurological: oriented x 4, level of consciousness appropriate for age, CN II-XII intact, motor strength equal & normal bilaterally, speech normal Abdomen: Soft, Non-tender, Non-distended, + Bowel sounds Assessment/Plan 1. Essential (primary) hypertension (I10) The current regimen of losartan and hydrochlorothiazide is reassessed due to potential interference from NyQuil. Trazodone is prescribed starting at 50 mg (advising to cut in half if too strong) for insomnia, aiming to eliminate NyQuil use and evaluate blood pressure stability in two weeks. Ordered: azithromycin, 500 mg = 1 tab(s), Oral, Daily, # 3 tab(s), Refills(s) 0, Pharmacy: [facility]/pharmacy #[id number], 174.6, cm, 11/02/23 9:56:00 EDT, Height/Length Dosing, 104.5, kg, 11/02/23 9:56:00 EDT, Weight Dosing trazodone, 50 mg = 1 tab(s), Oral, Once a day (at bedtime), # 30 tab(s), Refills(s) 0, Pharmacy: [facility]/pharmacy #[id number], 174.6, cm, 11/23/23 10:22:00 EDT, Height/Length Dosing, 102.6, kg, 11/23/23 10:22:00 EDT, Weight Dosing 2. Insomnia (G47.00: Insomnia, unspecified) Will try trazodone. Will start with 50 and if that is too strong patient could cut it in half. Discussed this in detail. Ordered: trazodone, 50 mg = 1 tab(s), Oral, Once a day (at bedtime), # 30 tab(s), Refills(s) 0, Pharmacy: [facility]/pharmacy #[id number], 174.6, cm, 11/23/23 10:22:00 EDT, Height/Length Dosing, 102.6, kg, 11/23/23 10:22:00 EDT, Weight Dosing 3. Alcohol abuse, uncomplicated (F10.10) The patient is informed about the implications of excessive alcohol intake on blood pressure and other health parameters. A gradual reduction strategy is advised to mitigate withdrawal symptoms. Monitoring is planned over the next two weeks to assess progress in abstaining on weekdays and reducing total alcohol consumption. Ordered: trazodone, 50 mg = 1 tab(s), Oral, Once a day (at bedtime), # 30 tab(s), Refills(s) 0, Pharmacy: [facility]/pharmacy #[id number], 174.6, cm, 09/30/24 10:22:00 EDT, Height/Length Dosing, 102.6, kg, 11/23/23 10:22:00 EDT, Weight Dosing 4. BMI 33.0-33.9,adult (Z68.33: Body mass index [BMI] 33.0-33.9, adult) BMI education added Ordered: trazodone, 50 mg = 1 tab(s), Oral, Once a day (at bedtime), # 30 tab(s), Refills(s) 0, Pharmacy: [facility]/pharmacy #[id number], 174.6, cm, 11/23/23 10:22:00 EDT, Height/Length Dosing, 102.6, kg, 11/23/23 10:22:00 EDT, Weight Dosing 5. Class 1 obesity due to excess calories in adult (E66.09: Other obesity due to excess calories) The patient is counseled on the relationship be (more content not included)... [facility] Comment on above: Result Comment: Elec tronically Signed By: Rigo WILSON, David Byrd\.br\Date and Time Signed: 11/23/23 10:53 EDT Clinical Note 11-23-2023 Note Date & Type Note Facility 11-23-2023 Note Patient Education Nutrition BMI for Adults Body mass index (BMI) is a number found using a person's weight and height. BMI can help tell how much of a person's weight is made up of fat. BMI does not measure body fat directly. It is used instead of tests that directly measure body fat, which can be difficult and expensive. What are BMI measurements used for? BMI is useful to: ? Find out if your weight puts you at higher risk for medical problems. ? Help recommend changes, such as in diet and exercise. This can help you reach a healthy weight. BMI screening can be done again to see if these changes are working. How is BMI calculated? Your height and weight are measured. The BMI is found from those numbers. This can be done with U.S. or metric measurements. Note that charts and online BMI calculators are available to help you find your BMI quickly and easily without doing these calculations. To calculate your BMI in U.S. measurements: 1. Measure your weight in pounds (lb). 2. Multiply the number of pounds by 703. ? So, for an adult who weighs 150 lb, multiply that number by 703: 150 x 703, which equals 105,450. 3. Measure your height in inches. Then multiply that number by itself to get a measurement called inches squared. ? So, for an adult who is 70 inches tall, the inches squared measurement is 70 inches x 70 inches, which equals 4,900 inches squared. 4. Divide the total from step 2 (number of lb x 703) by the total from step 3 (inches squared): 105,450 ? 4,900 = 21.5. This is your BMI. To calculate your BMI in metric measurements: 1. Measure your weight in kilograms (kg). ? For this example, the weight is 70 kg. 2. Measure your height in meters (m). Then multiply that number by itself to get a measurement called meters squared. ? So, for an adult who is 1.75 m tall, the meters squared measurement is 1.75 m x 1.75 m, which equals 3.1 meters squared. 3. Divide the number of kilograms (your weight) by the meters squared number. In this example: 70 ? 3.1 = 22.6. This is your BMI. What do the results mean? BMI charts are used to see if you are underweight, normal weight, overweight, or obese. The following guidelines will be used: ? Underweight: BMI less than 18.5. ? Normal weight: BMI between 18.5 and 24.9. ? Overweight: BMI between 25 and 29.9. ? Obese: BMI of 30 or above. BMI is a tool and cannot diagnose a condition. Talk with your health care provider about what your BMI means for you. Keep these notes in mind: ? Weight includes fat and muscle. Someone with a muscular build, such as an athlete, may have a BMI that is higher than 24.9. In cases like these, BMI is not a correct measure of body fat. ? If you have a BMI of 25 or higher, your provider may need to do more testing to find out if excess body fat is the cause. ? BMI is measured the same way for males and females. Females usually have more body fat than males of the same height and weight. Where to find more information For more information about BMI, including tools to quickly find your BMI, go to: ? Centers for Disease Control and Prevention: cdc.gov ? [place] [employer]: heart.org ? National Heart, Lung, and Blood [place]: nhlbi.nih.gov This information is not intended to replace advice given to you by your health care provider. Make sure you discuss any questions you have with your health care provider. Document Revised: 10/30/2022 Document Reviewed: 10/23/2022 [employer] Patient Education ? 2023 [facility] Summary Purpose Family History No Family History Records FoundNo Family History Records Found Advance Directives No Advanced Directives Records FoundNo Advanced Directives Records Found Additional Source Comments (unrecognized sect ion and content) No Status Records FoundNo Status Records Found INFORMATION SOURCE (unrecogn ized section and content) DATE CREATED AUTHOR 11/12/2018 [facility] DATE CREATED AUTHOR AUTHOR'S ORGANIZ ATION 02/04/2024 [facility] FOR RECORDS PERTAINING TO PATIENTS WHO ARE OR HAVE BEEN ENROLLED IN A CHEMICAL DEPENDENCY/SUBSTANCEABUSE PROGRAM, SOME INFORMATION MAY BE OMITTED. This clinical summary was aggregated from multiple sources. Caution should be exercised in using it in the provision of clinical care. This summary normalizes information from multiple sources, and as a consequence, information in this document may materially change the coding, format and clinical context of patient data. In addition, data may be omitted in some cases. CLINICAL DECISIONS SHOULD BE BASED ON THE PRIMARY CLINICAL RECORDS. [employer] provides no warranty or guarantee of the accuracy or completeness of information in this document.
[2024-03-26 07:48] LABS: Basophils Absolute Auto 0.1 10^3/uL (0.0-0.1); Basophils Percent Auto 0.5 % (0.2-2.0); Eosinophils Absolute Auto 0.1 10^3/uL (0.0-0.7); Eosinophils Percent Auto 1.1 % (0.9-7.0); Hematocrit 46.2 % (42.0-54.0); Hemoglobin 15.9 g/dL (14.0-18.0); Immature Granulocytes Abs Auto 0.05 10^3/uL (0.00-0.03); Immature Granulocytes Pct Auto 0.5 % (0.0-0.5); Lymphocytes Absolute Auto 1.4 10^3/uL (1.2-3.8); Lymphocytes Percent Auto 13.6 % (20.5-60.0); Mean Corpuscular HGB Conc 34.4 g/dL (29.9-35.2); Mean Corpuscular Hemoglobin 30.8 pg (25.9-34.0); Mean Corpuscular Volume 89.4 fL (80.0-94.0); Mean Platelet Volume 8.3 fL (9.5-13.5); Monocytes Absolute Auto 0.8 10^3/uL (0.3-0.8); Monocytes Percent Auto 7.6 % (1.7-12.0); Neutrophils Absolute Auto 7.7 10^3/uL (1.4-6.5); Neutrophils Percent Auto 76.7 % (43.0-75.0); Platelet Count 288 10^3/uL (150-450); Red Blood Count 5.17 10^6/uL (4.70-6.10); Red Cell Distribution Width 12.4 % (11.0-15.0); White Blood Count 10.1 10^3/uL (4.0-11.0)
[2024-03-26 08:12] LABS: Estimated Average Glucose 108 mg/dL; Glycohemoglobin A1C 5.4 % (4.5-6.2)
[2024-03-26 08:40] LABS: Alanine Aminotransferase 28 U/L (16-63); Albumin Level 3.7 g/dL (3.4-5.0); Alkaline Phosphatase 45 U/L (46-116); Aspartate Amino Transferase 17 U/L (15-37); Bilirubin Total 0.6 mg/dL (0.2-1.0); Calcium 8.7 mg/dL (8.5-10.1); Carbon Dioxide 28.3 mmol/L (21.0-32.0); Chloride 103 mmol/L (98-107); Chol HDL Ratio 5.5; Cholesterol 224 mg/dL (<=200); Estimated GFR (African America >60 (>=60 mL/min/1.73m^2); Estimated GFR (Non-African Ame >60 (>=60 mL/min/1.73m^2); Free T3 2.73 pg/mL (2.18-3.98); Globulin 3.6 g/dL; Glucose 105 mg/dL (74-106); HDL Cholesterol 41 mg/dL (40-60); Potassium 4.3 mmol/L (3.5-5.1); Sodium 139 mmol/L (136-145); Thyroid Stimulating Hormone 2.379 uIU/mL (0.358-3.740); Total Protein 7.3 g/dL (6.4-8.2); Triglycerides 226 mg/dL (<=150); Uric Acid 6.9 mg/dL (3.5-7.2); VLDL CHOLESTEROL 45.2 mg/dL
[2024-03-26 08:44] LABS: Prostate Specific Antigen Scrn 0.53 ng/mL (<=4.00)
[2024-03-27 07:10] LABS: Vitamin B12 568 pg/mL (232-1245)
[2024-03-27 12:07] LABS: Insulin 9.9 uIU/mL (2.6-24.9)
== END 2024-03-26 07:20 | disposition home or self-care (01) ==
LOC: LAB 07:20
PROVIDERS: PCP Nurse Practitioner Family; Visit Provider Nurse Practitioner Family
DX: Z00.00 Encounter for general adult medical examination without abnormal findings (principal)
CPT/HCPCS: 36415; 80053; 80061; 82607; 83036; 83525; 84436; 84443; 84481; 84550; 85025; G0103

== ENCOUNTER 2024-07-12 09:31 | Outpatient (OUT) | payer OTHER, SELFPAY ==
--- OUTSIDE RECORDS SUMMARY | 2024-07-12 09:38 | XMS_ITS | CCD ---
Author Organization [facility] Care Team Providers Care Foreclosure Paralegal Name Role Phone ZEN ANDERSON Primary Care Unavailable AIRAM EUCEDA Admitting Unavailable AIRAM EUCEDA Attending Unavailable AIRAM EUCEDA Consulting Unavailable ZEN ANDERSON Primary Care Unavailable KAYE WASHINGTON Admitting Unavailable HAY, KAYE Attending Unavailable KAYE WASHINGTON Consulting Unavailable ZEN ANDERSON Primary Care Unavailable WILLOWS, OF [place] Admitting Unavailable WILLOWS, OF [place] Attending Unavailable RODOLFO SANTANA Consulting Unavailable EMILY MENDES Consulting Unavailable David Sierra Attending Unavailable David Sierra Attending Unavailable David Sierra Attending Unavailable David Sierra Attending Unavailable David Sierra Attending Unavailable Dariel, MALLIKA Romo Attending Unavailable David Sierra Attending Unavailable Allergies Allergy Classification Reported Allergen(s) Allergy Type Date of Onset Reaction(s) Facility (1 source) No Known Medication Allergies; Translations: [No Known Medication Allergies] Propensity to adverse reactions (disorder) [facility] Repository Problems Active Problems Problem Classification Problem [...] Results Test Name Value Interpretation Reference Range [facility] Medicine Office/Clini c Noteon 01-04-2024 [...] mRNA BNT-162b2 vax 05/24/2020 Recorded Normal [facility] Comment on above: Result Comment: Elec [...] (COVID-19) mRNA BNT-162b2 vax 05/24/2020 Recorded Normal [facility] Comment on above: Result Comment: Elec tronically [...] PM EDT With: David Sierra MD Where: [address] [address]- Thursday 4:00 PM EDT With: David Sierra MD Where: [address] [address]- Medications What How Much When Instructions Unchanged [...] for choosing us for your care. Normal [facility] Ambulatory Visit Summaryon 0 11-02-2023 Ambulatory Visit [...] PM EDT With: David Sierra MD Where: [address] [address]- Medications What How Much When [...] choosing us for your care. Berenice [facility] Medicine Office/Clini c Noteon 11-02-2023 [...] day(s), # 21 tab(s), Refills(s) 0, [id number], 174.6, cm, 11/02/23 9:56:00 EDT, Height/Length Dosing, 104.5, kg, 11/02/23 9:56:00 EDT, Weight Dosing Rapid COVID POC 45326 2. Primary hypertension (I10: Essential (primary) hypertension) - At goal. Will refill meds Ordered: azithromycin, 500 mg = 1 tab(s), Oral, Daily, # 3 tab(s), Refills(s) 0, [id number], 174.6, cm, 11/02/23 9:56:00 EDT, Height/Length Dosing, 104.5, kg, 11/02/23 9:56:00 EDT, Weight Dosing methylPREDNISolone, = 1 packet(s), Oral, As Directed, as directed on package labeling, X 6 day(s), # 21 tab(s), Refills(s) 0, [id number], 174.6, cm, 11/02/23 9:56:00 EDT, Height/Length Dosing, 104.5, kg, 11/02/23 9:56:00 EDT, Weight Dosing Rapid COVID POC 55106 3. Allergic rhinitis (J30.9: Allergic rhinitis, unspecified) - Possibly the cause of the sinus pressure. - Recommend Zyrtec. Ordered: azithromycin, 500 mg = 1 tab(s), Oral, Daily, # 3 tab(s), Refills(s) 0, [id number], 174.6, cm, 11/02/23 9:56:00 EDT, Height/Length Dosing, 104.5, kg, 11/02/23 9:56:00 EDT, Weight Dosing methylPREDNISolone, = 1 packet(s), Oral, As Directed, as directed on package labeling, X 6 day(s), # 21 tab(s), Refills(s) 0, [id number], 174.6, cm, 11/02/23 9:56:00 EDT, Height/Length Dosing, 104.5, kg, 11/02/23 9:56:00 EDT, Weight Dosing Rapid COVID POC 06800 4. BMI 34.0-34.9,adult (Z68.34: Body mass index [BMI] 34.0-34.9, adult) - BMI education added Ordered: azithromycin, 500 mg = 1 tab(s), Oral, Daily, # 3 tab(s), Refills(s) 0, [id number], 174.6, cm, 11/02/23 9:56:00 EDT, Height/Length Dosing, 104.5, kg, 11/02/23 9:56:00 EDT, Weight Dosing methylPREDNISolone, = 1 packet(s), Oral, As Directed, as directed on package labeling, X 6 day(s), # 21 tab(s), Refills(s) 0, [id number], 174.6, cm, 11/02/23 9:56:00 EDT, Height/Length Dosing, 104.5, kg, 11/02/23 9:56:00 EDT, Weight Dosing Rapid COVID POC 12906 5. Class 1 obesity due to excess calories in adult (E66.09: Other obesity due to excess calories) - Diet and exercise advised Ordered: azithromycin, 500 mg = 1 tab(s), Oral, Daily, # 3 tab(s), Refills(s) 0, [id number], 174.6, cm, 11/02/23 9:56:00 EDT, Height/Length Dosing, 104.5, kg, 11/02/23 9:56:00 EDT, Weight Dosing methylPREDNISolone, = 1 packet(s), Oral, As Directed, as directed on package labeling, X 6 day(s), # 21 tab(s), Refills(s) 0, [id number], 174.6, cm, 11/02/23 9:56:00 EDT, Height/Length Dosing, 104.5, kg, 11/02/23 9:56:00 EDT, Weight Dosing Rapid COVID POC 20661 6. Smoker (F17.200: Nicotine dependence, unspecified, uncomplicated) Ordered: azithromycin, 500 mg = 1 tab(s), Oral, Daily, # 3 tab(s), Refills(s) 0, [id number], 174.6, cm, 11/02/23 9:56:00 EDT, Height/Length Dosing, 104.5, kg, 11/02/23 9:56:00 EDT, Weight Dosing methylPREDNISolone, = 1 packet(s), Oral, As Directed, as directed on package labeling, X 6 day(s), # 21 tab(s), Refills(s) 0, Pharmacy: [facility]/pharmacy #[id number], 174.6, cm, 11/02/23 9:56:00 EDT, Height/Length Dosing, 104.5, kg, 11/02/23 9:56:00 EDT, Weight Dosing Follow-up No qu (more content not included)... [facility] Comment on above: Result Comment: Elec tronically Signed By: David Sierra MD\.br\Date and Time Signed: 11/02/23 10:17 EDT Provider Letteron 11-02-2023 Provider Letter Provider Letter November 02, 2023 ELIZABETH CALLAHAN [address] [place] [address] : 1975 To Whom It May Concern, Please excuse above patient from work. Date of Illness: From: 11-02-23 To: _11-02-23 May Return to Work On:11-03-23 Restrictions: _ Comments: _ Sincerely, Family Medicine [address] [address] [facility] Ambulatory Visit Summaryon 0 05-14-2023 Ambulatory Visit [...] for choosing us for your care. Berenice [facility] Family Medicine Office/Clini c Noteon 05-14-2023 Family [...] day(s), # 14 tab(s), Refills(s) 0, [id number], 174.6, cm, 05/14/23 11:16:00 EDT, Height/Length Dosing, 105.6, kg, 05/14/23 11:16:00 EDT, Weight Dosing methylPREDNISolone, = 1 packet(s), Oral, As Directed, as directed on package labeling, X 6 day(s), # 21 tab(s), Refills(s) 0, [id number], 174.6, cm, 05/14/23 11:16:00 EDT, Height/Length Dosing, 105.6, kg, 05/14/23 11:16:00 EDT, Weight Dosing 2. Left otitis media (H66.92: Otitis media, unspecified, left ear) left TM and canal red Ordered: amoxicillin-clavulanate, = 1 tab(s), Oral, q12hr, X 7 day(s), # 14 tab(s), Refills(s) 0, [id number], 174.6, cm, 05/14/23 11:16:00 EDT, Height/Length Dosing, 105.6, kg, 05/14/23 11:16:00 EDT, Weight Dosing methylPREDNISolone, = 1 packet(s), Oral, As Directed, as directed on package labeling, X 6 day(s), # 21 tab(s), Refills(s) 0, [id number], 174.6, cm, 05/14/23 11:16:00 EDT, Height/Length Dosing, 105.6, kg, 05/14/23 11:16:00 EDT, Weight Dosing 3. BMI 34.0-34.9,adult (Z68.34: Body mass index [BMI] 34.0-34.9, adult) BMI education complete Ordered: amoxicillin-clavulanate, = 1 tab(s), Oral, q12hr, X 7 day(s), # 14 tab(s), Refills(s) 0, [id number], 174.6, cm, 05/14/23 11:16:00 EDT, Height/Length Dosing, 105.6, kg, 05/14/23 11:16:00 EDT, Weight Dosing methylPREDNISolone, = 1 packet(s), Oral, As Directed, as directed on package labeling, X 6 day(s), # 21 tab(s), Refills(s) 0, [id number], 174.6, cm, 05/14/23 11:16:00 EDT, Height/Length Dosing, 105.6, kg, 05/14/23 11:16:00 EDT, Weight Dosing 4. Smoker (F17.200: Nicotine dependence, unspecified, uncomplicated) consider not smoking Ordered: amoxicillin-clavulanate, = 1 tab(s), Oral, q12hr, X 7 day(s), # 14 tab(s), Refills(s) 0, [id number], 174.6, cm, 05/14/23 11:16:00 EDT, Height/Length Dosing, 105.6, kg, 05/14/23 11:16:00 EDT, Weight Dosing methylPREDNISolone, = 1 packet(s), Oral, As Directed, as directed on package labeling, X 6 day(s), # 21 tab(s), Refills(s) 0, [id number], 174.6, cm, 05/14/23 11:16:00 EDT, Height/Length [...] mRNA BNT-162b2 vax 05/24/2020 Recorded Normal [facility] Comment on above: Result Comment: Elec tronically Signed By: Bárbara Cameron\.br\Date and Time Signed: 05/14/23 12:36 EDT XR MANDIBLE MIN 4Von 019 XR MANDIBLE MIN 4V Patient: ELIZABETH CALLAHAN Exam Date: 08/26/2018 : 1975 Gender:M Ordering : DR. EMILY MENDES . Admission #: [id number] Family : [facility] [place] [facility] Order #: [id number] CLICK HERE TO VIEW EXAM RADIOLOGY REPORT [...] Santana M.D. on 08/26/2018 at 11:[address] [facility] Encounters Encounter Date Encounter Type Care Provider Facility Start: 05-02-2024 End: 05-02-2024 ambulatory David Sierra Facility:[facility] Wendy combs Start: 02-01-2024 End: 02-01-2024 ambulatory David Sierra Facility:[facility] Wendy lauryn Start: 01-04-2024 End: 01-04-2024 ambulatory David Sierra Facility:[facility] [place] lauryn Start: 12-07-2023 End: 12-07-2023 ambulatory David Sierra Facility:[facility] [place] lauryn Start: 11-23-2023 End: 11-23-2023 [facility] Start: 11-02-2023 End: 11-02-2023 ambulatory David Sierra Facility:[facility] Wendy combs Start: 05-14-2023 End: 05-14-2023 ambulatory [employer] Bárbara Vieira Facility:[facility] Wendy combs Start: 08-26-2018 End: 08-26-2018 Patient encounter procedure ZEN ANDERSON Facility:[facility] Start: 06-01-2018 End: 06-01-2018 Patient encounter procedure ZEN ANDERSON Facility:[facility] Start: 12-24-2017 End: 12-24-2017 Patient encounter procedure ZEN ANDERSON Facility:[facility] Payers Date Payer Category Payer Unknown [id number] 1975 Unknown [id number] 2.16.84 [id number] 1975 Unknown [id number] 2.16.84 [id number] 1975 Unknown [id number] 2.16.84 [id number] 1975 Unknown [id number] 2.16.8 [id number] 1975 Unknown [id number] 2.16.8 [id number] 1975 Unknown [id number] 2.16.8 [id number] 1975 Unknown [id number] 2.16.8 [id number] 1975 Unknown [id number] 2.16.8 [id number] 1975 Unknown [id number] 2.16.8 [id number] 1975 Unknown [id number] 2.16.8 [id number] 1958 Unknown [id number] Clinical Note 01-04-2024 Note Date & Type [...] for Disease Control and Prevention: cdc.gov ??? [place] [employer]: heart.org ??? National Heart, Lung, and Blood [place]: nhlbi.nih.gov This information is not intended to replace advice given to you by your health care provider. Make sure you discuss any questions you have with your health care provider. Document Revised: 10/30/2022 Document Reviewed: 10/23/2022 [employer] Patient Education ? 2023 Last Guide. [facility] Clinical Note 11-23-2023 Note Date & Type [...] Daily, # 3 tab(s), Refills(s) 0, Pharmacy: [facility]/pharm[facility] #[id number], 174.6, cm, 11/02/23 9:56:00 EDT, Height/Length Dosing, 104.5, kg, 11/02/23 9:56:00 EDT, Weight Dosing trazodone, 50 mg = 1 tab(s), Oral, Once a day (at bedtime), # 30 tab(s), Refills(s) 0, Pharmacy: [facility]/pharmacy #[id number], 174.6, cm, 11/23/23 10:22:00 EDT, Height/Length Dosing, 102.6, kg, 11/23/23 10:22:00 EDT, Weight Dosing 2. Insomnia (G47.00: Insomnia, unspecified) Will try trazodone. Will start with 50 and if that is too strong patient could cut it in half. Discussed this in detail. Ordered: trazodone, 50 mg = 1 tab(s), Oral, Once a day (at bedtime), # 30 tab(s), Refills(s) 0, Pharmacy: [facility] #[id number], 174.6, cm, 11/23/23 10:22:00 EDT, Height/Length [...] bedtime), # 30 tab(s), Refills(s) 0, Pharmacy: [facility]/pharmacy #[id number], 174.6, cm, 11/23/23 10:22:00 EDT, Height/Length Dosing, 102.6, kg, 11/23/23 10:22:00 EDT, Weight Dosing 4. BMI 33.0-33.9,adult (Z68.33: Body mass index [BMI] 33.0-33.9, adult) BMI education added Ordered: trazodone, 50 mg = 1 tab(s), Oral, Once a day (at bedtime), # 30 tab(s), Refills(s) 0, Pharmacy: [facility]/pharm[facility] #[id number], 174.6, cm, 11/23/23 10:22:00 EDT, Height/Length Dosing, 102.6, kg, 11/23/23 10:22:00 EDT, Weight Dosing 5. Class 1 obesity due to excess calories in adult (E66.09: Other obesity due to excess calories) The patient is counseled on the relationship be (more content not included)... [facility] Comment on above: Result Comment: Elec tronically Signed By: Rigo WILSON, David Blood.br\Date and Time Signed: 11/23/23 10:53 EDT Clinical [...] for Disease Control and Prevention: cdc.gov ? [place] [employer]: heart.org ? National Heart, Lung, and Blood [place]: nhlbi.nih.gov This information is not intended to replace advice given to you by your health care provider. Make sure you discuss any questions you have with your health care provider. Document Revised: 10/30/2022 Document Reviewed: 10/23/2022 [employer] Patient Education ? 2023 Last Guide. [facility] Summary Purpose Family History No Family History Records FoundNo Family History Records Found Advance Directives No Advanced Directives Records FoundNo Advanced Directives Records Found Additional Source Comments (unrecognized sect ion and content) No Status Records FoundNo Status Records Found INFORMATION SOURCE (unrecogn ized section and content) DATE CREATED AUTHOR 11/12/2018 [facility] DATE CREATED AUTHOR AUTHOR'S ORGANIZ ATION 05/04/2024 [facility] FOR RECORDS PERTAINING TO PATIENTS WHO ARE [...] BE BASED ON THE PRIMARY CLINICAL RECORDS. [employer] provides no warranty or guarantee of the accuracy or completeness of information in this document.
[2024-07-12 10:18] LABS: Alanine Aminotransferase 28 U/L (16-63); Albumin Globulin Ratio 1.3; Alkaline Phosphatase 47 U/L (46-116); Anion Gap 14.8; Aspartate Amino Transferase 19 U/L (15-37); BUN Creatinine Ratio 14.1; Bilirubin Total 0.7 mg/dL (0.2-1.0); Carbon Dioxide 28.9 mmol/L (21.0-32.0); Chloride 105 mmol/L (98-107); Estimated GFR (African America >60 (>=60 mL/min/1.73m^2); Estimated GFR (Non-African Ame >60 (>=60 mL/min/1.73m^2); Globulin 3.1 g/dL; Glucose 96 mg/dL (74-106); Potassium 4.7 mmol/L (3.5-5.1); Sodium 144 mmol/L (136-145); Total Protein 7.1 g/dL (6.4-8.2)
[2024-07-12 12:54] LABS: Bilirubin Direct 0.1 mg/dL (0.0-0.2)
== END 2024-07-12 09:32 | disposition home or self-care (01) ==
LOC: LAB 09:34
PROVIDERS: PCP Nurse Practitioner Family; Visit Provider Nurse Practitioner Family
DX: E78.5 Hyperlipidemia, unspecified (principal); Z79.899 Other long term (current) drug therapy
CPT/HCPCS: 36415; 80053; 80076; 82248